=== PATIENT | male | born 1995 | race Caucasian/White ===

== ENCOUNTER 2016-12-21 17:00 | Emergency (ER) | END 2016-12-21 17:53 | disposition home or self-care (01) | DX: L03.115 Cellulitis of right lower limb (principal) | CPT/HCPCS: Z7502; Z7610 ==

== ENCOUNTER 2016-12-23 19:07 | Inpatient (IN) | payer OTHER ==
[~2016-12-23] VITALS: Ht 182.9 cm; Wt 92.0 kg
[~2016-12-23 19:07] MED LIST: CEPH-443 PO; IBUP-1542 PO; SULF1TAB31 PO
[2016-12-23] MEDS ORDERED: KETOROLAC 30 MG INJ IV STA (19:49)
[2016-12-23] MEDS ORDERED: VANCOMYCIN 1 GM (PMX) 250 ML IVPB SCH (20:00)
[2016-12-23] MEDS ORDERED: SOD CHLORIDE 0.9% 1,000 ML IV ONE (20:00)
[2016-12-23] MEDS ORDERED: ACETAMINOPHEN 325 MG TAB PO ONE (21:30)
[2016-12-23 21:41] LABS: ADD SCAN DIFF NO
--- NOTE | 2016-12-23 21:44 | RADRPT ---
PROCEDURE: XR right ankle. CLINICAL INDICATION: Right-sided ankle pain and medial swelling TECHNIQUE: AP , oblique and lateral views of the right ankle were performed. COMPARISON: None. FINDINGS: There is normal mineralization and alignment. No fracture or osseous lesion is identified. The ankle mortis and talar dome are intact. Mild soft tissue swelling is present. There is no evidence for a radiopaque foreign body. RPTAT:HJJR IMPRESSION: Mild soft tissue swelling without osseous abnormality involving the right ankle. Physician Yuri Date Time Electronically viewed and signed by Physician Yuri on 12/23/2016 21:44 /
--- NOTE | 2016-12-23 21:44 | RADRPT ---
PROCEDURE: XR right foot. CLINICAL INDICATION: Medial foot swelling TECHNIQUE: AP, lateral and oblique views of the right foot were obtained. COMPARISON: None. FINDINGS: Mineralization is within normal limits. No fracture or osseous lesion is identified. There is no e vidence for dislocation. Joint spaces are preserved. The soft tissues are unremarkable. There is n o evidence for radiopaque foreign body. RPTAT:HJJR IMPRESSION: Unremarkable right foot series. Physician Yuri Date Time Electronically viewed and signed by Physician Yuri on 12/23/2016 21:44 JR/
[2016-12-23 21:50] LABS: BASOPHILS % 0.3 % (0.0-2.0); EOSINOPHILS # 0.2 10^3/ul (0.0-0.5); EOSINOPHILS % 1.7 % (0.0-7.0); HEMATOCRIT 47.3 % (42.0-52.0); HEMOGLOBIN 15.8 g/dl (14.0-18.0); LYMPHOCYTES # 1.7 10^3/ul (0.8-2.9); LYMPHOCYTES % 13.7 % (15.0-51.0); MEAN CORPUSCULAR HEMOGLOBIN 30.7 pg (29.0-33.0); MEAN CORPUSCULAR HGB CONC 33.4 g/dl (32.0-37.0); MEAN CORPUSCULAR VOLUME 91.8 fl (82.0-101.0); MEAN PLATELET VOLUME 10.1 fl (7.4-10.4); MONOCYTE # 0.9 10^3/ul (0.3-0.9); MONOCYTES % 7.7 % (0.0-11.0); NEUTROPHIL # 9.3 10^3/ul (1.6-7.5); PLATELET COUNT 284 10^3/UL (140-415); RED BLOOD COUNT 5.15 10^6/ul (4.70-6.10); RED CELL DISTRIBUTION WIDTH 13.1 % (11.5-14.5); WHITE BLOOD COUNT 12.2 10^3/ul (4.8-10.8)
[2016-12-23] MEDS ORDERED: morphine 10 MG INJ IV ONE (22:00)
[2016-12-23 22:08] LABS: ALBUMIN 5.1 g/dl (3.3-4.9); ALBUMIN/GLOBULIN RATIO 1.59; BILIRUBIN,INDIRECT 0.4 mg/dl (0-1.1); BILIRUBIN,TOTAL 0.4 mg/dl (0.2-1.3); C-REACTIVE PROTEIN 5.4 mg/dl (0.0-0.9); CALCIUM 9.5 mg/dl (8.4-10.2); CREATININE 1.15 mg/dl (0.61-1.24); POTASSIUM 3.9 mmol/L (3.5-5.1); TOTAL PROTEIN 8.3 g/dl (6.1-8.1)
--- NOTE | 2016-12-23 23:08 | ERA ---
ER Documentation Chief Complaint Date/Time DATE: 12/23/16 TIME: 23:07 Chief Complaint bug bite on right ankle x 3 days, feels like it became worse HPI The patient is a 21-year-old male, presenting to the ER because of right ankle cellulitis from bug bite for 3 days. He was seen in the ER 2 days ago and treated with Bactrim DS and Keflex, however he is not getting better. The right ankle now is edematous, erythematous, and tender. He complains fever, denies chills, neck pain, chest pain, dyspnea, abdominal pain, vomiting, dysuria , diarrhea. He does not smoke nor drink Past medical/surgical history: None ROS All systems reviewed and are negative except as per history of present illness. Medications Home Meds Active Scripts Ibuprofen* (Motrin*) 600 Mg Tab, 600 MG PO Q6, #15 TAB Prov:ALIDA JALLOH MD 12/21/16 Cephalexin* (Keflex*) 500 Mg Capsule, 500 MG PO QID for 10 Days, CAP Prov:ALIDA JALLOH MD 12/21/16 Sulfamethoxazole/Trimethoprim* (Bactrim Ds* Tablet) 1 Each Tablet, 1 TAB PO BID , #14 TAB Prov:ALIDA JALLOH MD 12/21/16 Allergies Allergies: Coded Allergies: No Known Allergy (Unverified , 12/21/16) PMhx/Soc History of Surgery: No Anesthesia Reaction: No Hx Neurological Disorder: No Hx Respiratory Disorders: No Hx Cardiac Disorders: No Hx Psychiatric Problems: No Hx Miscellaneous Medical Probl: No Hx Alcohol Use: No Hx Substance Use: Yes Hx Tobacco Use: No Smoking Status: Never smoker Physical Exam Vitals Vital Signs Date Time Temp Pulse Resp B/P Pulse Ox O2 Delivery O2 Flow Rate FiO2 12/23/16 22:58 101.0 12/23/16 19:11 99.6 103 18 161/96 98 Physical Exam Const: No acute distress. Head: Atraumatic. Eyes: Normal Conjunctiva. ENT: Normal External Ears, Nose and Mouth. Neck: Full range of motion. No meningismus. Resp: Clear to auscultation bilaterally. Cardio: Regular rate and rhythm. Abd: Soft, non distended, normal bowel sounds, non tender. Skin: No petechiae or rashes. Back: No midline or flank tenderness. Ext: Right ankle is erythematous, warm to touch, edematous, no calf tenderness Neur: Awake and alert. No focal deficit Psych: Normal Mood and Affect. Result Diagram: 12/23/16203612/23/162036 Results 24 hrs Laboratory Tests Test 12/23/16 20:37 12/23/16 21:20 White Blood Count 12.210^3/ul Red Blood Count 5.1510^6/ul Hemoglobin 15.8g/dl Hematocrit 47.3% Mean Corpuscular Volume 91.8fl Mean Corpuscular Hemoglobin 30.7pg Mean Corpuscular Hemoglobin Concent 33.4g/dl Red Cell Distribution Width 13.1% Platelet Count 82385^3/UL Mean Platelet Volume 10.1fl Neutrophils % 76.0% Lymphocytes % 13.7% Monocytes % 7.7% Eosinophils % 1.7% Basophils % 0.3% Nucleated Red Blood Cells % 0.0/100WBC Neutrophils # 9.310^3/ul Lymphocytes # 1.710^3/ul Monocytes # 0.910^3/ul Eosinophils # 0.210^3/ul Basophils # 0.010^3/ul Nucleated Red Blood Cells # 0.010^3/ul Erythrocyte Sedimentation Rate 1mm/Hr Sodium Level 134mmol/L Potassium Level 3.9mmol/L Chloride Level 99mmol/L Carbon Dioxide Level 27mmol/L Anion Gap 12 Blood Urea Nitrogen 10mg/dl Creatinine 1.15mg/dl Glucose Level 79mg/dl Calcium Level 9.5mg/dl Total Bilirubin 0.4mg/dl Direct Bilirubin 0.00mg/dl Indirect Bilirubin 0.4mg/dl Aspartate Amino Transf (AST/SGOT) 242IU/L Alanine Aminotransferase (ALT/SGPT) 87IU/L Alkaline Phosphatase 77IU/L C-Reactive Protein 5.4mg/dl Total Protein 8.3g/dl Albumin 5.1g/dl Globulin 3.20g/dl Albumin/Globulin Ratio 1.59 Lactic Acid Level 1.8mmol/L Current Medications Medications (Trade) Dose Ordered Sig/Nany Route PRN Reason Start Time Stop Time Status Last Admin Dose Admin Sodium Chloride 1,000 ml @ 1,000 mls/hr Q1H ONCE IV 12/23/16 20:00 12/23/16 20:59 DC 12/23/16 21:01 Vancomycin HCl (Vancocin) 250 ml @ 125 mls/hr ONCE IVPB 12/23/16 20:00 12/23/16 21:59 DC 12/23/16 21:02 Ketorolac Tromethamine (Toradol) 30 mg ONCE STAT IV 12/23/16 19:49 12/23/16 19:53 DC 12/23/16 21:02 Acetaminophen (Tylenol Tab) 650 mg ONCE ONCE PO 12/23/16 21:30 12/23/16 21:31 DC 12/23/16 21:31 Morphine Sulfate 6 mg 6 mg ONCE ONCE IV 12/23/16 22:00 12/23/16 22:01 DC 12/23/16 22:06 Levofloxacin/ Dextrose (Levaquin 750 Mg/ D5W 150 ml (Pmx)) 150 ml @ 100 mls/hr ONCE ONCE IVPB 12/23/16 23:30 12/24/16 00:59 DC 12/23/16 23:30 IV Flush (NS 3 ml) 3 ml PER PROTOCOL IV 12/24/16 00:30 Ondansetron HCl (Zofran Inj) 4 mg Q6H PRN IV NAUSEA AND/OR VOMITING 12/24/16 00:30 Acetaminophen (Tylenol Tab) 650 mg Q6H PRN PO PAIN LEVEL 1-3 OR FEVER 12/24/16 00:30 Morphine Sulfate (morphine) 2 mg Q4H PRN IV SEVERE PAIN LEVEL 7-10 12/24/16 00:30 Pantoprazole (Protonix Iv) 40 mg DAILY@06 IV 12/24/16 06:00 Heparin Sodium (Porcine) (Heparin (5000 Units/0.5 ml)) 5,000 unit Q8 SC 12/24/16 06:00 Vancomycin HCl VANCOMYCIN PER PHARMACY PER PROTOCOL XX 12/24/16 00:30 Vancomycin HCl/ Sodium Chloride (Vancocin/NS) 250 ml @ 83.333 mls/ hr Q8H IVPB 12/24/16 05:00 Procedures/[place] [id number] Radiology Main Line: [phone] DIAGNOSTIC IMAGING REPORT Patient: SOFIA LENTZ : 1995 Age: 21 Sex: M MR #: [id number] DOS: 12/23/16 0000 Ordering MD: AVANI BRIHGT PA-C Location: [facility] Room/Bed: PROCEDURE: XR right foot. CLINICAL INDICATION: Medial foot swelling TECHNIQUE: AP, lateral and oblique views of the right foot were obtained. COMPARISON: None. FINDINGS: Mineralization is within normal limits. No fracture or osseous lesion is identified. There is no evidence for dislocation. Joint spaces are preserved. The soft tissues are unremarkable. There is no evidence for radiopaque foreign body. RPTAT:HJJR IMPRESSION: Unremarkable right foot series. Physician Yuri Date Time Electronically viewed and signed by Physician Yuri on 12/23/2016 21:44 JR/ CC: AVANI BRIGHT [place] [id number] Radiology Main Line: [phone] DIAGNOSTIC IMAGING REPORT Patient: SOFIA LENTZ : 1995 Age: 21 Sex: M MR #: [id number] DOS: 12/23/16 0000 Ordering MD: AVANI BRIGHT PA-C Location: [facility] Room/Bed: PROCEDURE: XR right ankle. CLINICAL INDICATION: Right-sided ankle pain and medial swelling TECHNIQUE: AP , oblique and lateral views of the right ankle were performed. COMPARISON: None. FINDINGS: There is normal mineralization and alignment. No fracture or osseous lesion is identified. The ankle mortis and talar dome are intact. Mild soft tissue swelling is present. There is no evidence for a radiopaque foreign body. RPTAT:HJJR IMPRESSION: Mild soft tissue swelling without osseous abnormality involving the right ankle. Physician Yuri Date Time Electronically viewed and signed by Physician Yuri on 12/23/2016 21:44 JR/ CC: AVANI BRIGHT MEDICAL MAKING DECISION: The patient is a 21-year-old male, presenting with acute right ankle cellulitis, refractory to outpatient therapy. He was treated with 1 L normal saline for clinical dehydration, vancomycin IV, Levaquin IV for acute right ankle cellulitis, Tylenol 650 mg p.o. for fever, toradol 30 mg IV and morphine 6 mg IV for pain with good response The differential diagnoses considered include but are not limited to cellulitis , abscess, necrotizing fasciitis, DVT, septic joint Departure Diagnosis: Primary Impression: Cellulitis of right ankle Additional Impression: Transaminitis Condition: Good Comments I discussed the findings with the patient. I discussed the patient with the hospitalist Dr. Hogan at 12:10 AM. who was made aware of the lab, the treatment, the patient condition. The patient is admitted to medical surgery bed Patient's blood pressure was elevated (>120/80) but appears stable without evidence of hypertension emergency or urgency. The patient was counseled about the risks of hypertension and urged to pursue outpatient monitoring and therapy within a week with their primary care physician. CARRIE SWAIN MD Dec 23, 2016 23:08
[2016-12-23] MEDS ORDERED: LEVOFLOXACIN 750MG/D5W (PMX) 150 ML IVPB ONE (23:30)
[2016-12-24] MEDS ORDERED: NACL 0.9% 3 ML SYG IV SCH (00:30)
[2016-12-24] MEDS ORDERED: VANCOMYCIN IV PER PHARMACY XX SCH (00:30)
[2016-12-24] MEDS ORDERED: ONDANSETRON 4 MG INJ IV PRN (00:30)
[2016-12-24] MEDS ORDERED: morphine 2 MG INJ IV PRN (00:30)
[2016-12-24] MEDS: ACETAMINOPHEN 325 MG TAB PO PRN ×2 (02:17→14:03)
[2016-12-24] MEDS: SOD CHLORIDE 0.9% 1,000 ML IV SCH ×4 (04:00→20:00)
--- NOTE | 2016-12-24 04:08 | HP ---
Date/Time of Note Date/Time of Note DATE: 12/24/16 TIME: 03:59 Assessment/Plan Assessment/Plan Chief Complaint/Hosp Course This is a 21-year-old male being admitted to the [facility] floor for: #1 right ankle cellulitis: Patient failed outpatient therapy. At the current time will start patient on vancomycin IV. Patient was given a dose of Vanco and Levaquin in the ED. Will follow blood cultures. X-rays showed soft tissue swelling. #2 transaminitis: This likely could be secondary to recent antibiotic use of Bactrim and Keflex as of both have side effects of transaminitis. Will order however right upper quadrant ultrasound and acute hepatitis panel for completeness sake as patient is observed to have multiple tattoos. #3 muscle tightness: Patient has some mild range of motion limitation as well as muscle tightness in bilateral upper extremities. This possibly could be general soreness from patient having worked out heavy after a long time however rule out embolus. Will order a CK total. Will put the patient on IV fluids of normal saline at 125 cc an hour and adjust as indicated. #3 DVT and GI prophylaxis: Heparin subcu, Protonix. Further treatment strategy will be implemented as per the clinical course Problems: HPI/ROS Admit Date/Time Admit Date/Time Hx of Present Illness Chief complaint: Right ankle swelling The patient is a 21-year-old male, presenting to the ER because of right ankle cellulitis from bug bite for 3 days. He was seen in the ER 2 days ago and treated with Bactrim DS and Keflex, however he is not getting better. The right ankle now is edematous, erythematous, and tender. He complains fever, denies chills, neck pain, chest pain, dyspnea, abdominal pain, vomiting, dysuria , diarrhea. H patient also reports that 2 days prior to getting the bug bite he also was working a lot and ever since then his upper remedies have been really stiff. The lower extremities are not stiff. Allergies: Include Medications: Bactrim, Keflex ROS Const: As per HPI Eyes : No pain discharge or redness or change in visual acuity ENT: No pain, sore throat, congestion, congestion, dysphagia or discharge Respiratory: No shortness of breath, cough, sputum, wheezing, or pleuritic pain Cardiovascular: No chest pain, palpitation, PND, or edema GI : no change in appetite, abdominal pain, nausea, vomiting, diarrhea, constipation, or change in the color his stool Genitourinary: No dysuria, hematuria, flank pain , discharge or CVA tenderness Musculoskeletal: As per HPI Skin: As per HPI Neuro: No headache, dizziness, syncope, seizure, focal weakness Endocrine: No polyuria, polydipsia, temperature intolerance Psych: No hallucination, depression, anxiety or suicidal ideation PMH/Family/Social Past Medical History Medical History: no pertinent history Past Surgical History Past Surgical Hx: no surgical history Family History Significant Family History: no pertinent family hx Social History Alcohol Use: none Smoking Status: Never smoker Drug Use: none Exam/Review of Systems Vital Signs Vitals Vital Signs Date Time Temp Pulse Resp B/P Pulse Ox O2 Delivery O2 Flow Rate FiO2 12/23/16 22:58 101.0 12/23/16 19:11 103 18 161/96 98 Exam Exam General: Patient is well-developed well-nourished The patient is alert oriented -3 lying comfortably in bed. HEENT: Atraumatic, normocephalic. The pupils are equal, round and reactive. Extraocular motor are intact Neck: Supple with full range of motion. No rigidity or meningismus Chest: Nontender Lungs: Clear to auscultation bilaterally no crackles rales or wheezing Heart: Normal S1-S2, Regular rhythm and rate. No murmur, S3, or S4 Abdomen: Soft , nontender, nondistended , bowel sounds are present. No guarding no rebound tenderness , No masses or organomegaly. No costovertebral temporal angle mass Extremities: Right medial ankle redness, swelling, warmth noted. Bilateral upper extremity mild range of motion limitation at the bilateral antecubital fossa. Neurologic: Normal mental status, speech normal, cranial nerves II through XII are intact, motor and sensory are intact, no focal weakness Skin: Multiple tattoos Additional Comments PROCEDURE: XR right ankle. CLINICAL INDICATION: Right-sided ankle pain and medial swelling TECHNIQUE: AP , oblique and lateral views of the right ankle were performed. COMPARISON: None. FINDINGS: There is normal mineralization and alignment. No fracture or osseous lesion is identified. The ankle mortis and talar dome are intact. Mild soft tissue swelling is present. There is no evidence for a radiopaque foreign body. RPTAT:HJJR IMPRESSION: Mild soft tissue swelling without osseous abnormality involving the right ankle. Physician Yuri Date Time Electronically viewed and signed by Physician Yuri on 12/23/2016 21:44 JR/ PROCEDURE: XR right foot. CLINICAL INDICATION: Medial foot swelling TECHNIQUE: AP, lateral and oblique views of the right foot were obtained. COMPARISON: None. FINDINGS: Mineralization is within normal limits. No fracture or osseous lesion is identified. There is no evidence for dislocation. Joint spaces are preserved. The soft tissues are unremarkable. There is no evidence for radiopaque foreign body. RPTAT:HJJR IMPRESSION: Unremarkable right foot series. Physician Yuri Date Time Electronically viewed and signed by Physician Yuri on 12/23/2016 21:44 JR/ CC: AVANI BRIGHT Labs Result Diagram: 12/23/16203612/23/162036 Medications Medications Current Medications Ondansetron HCl (Zofran Inj) 4 mg Q6H PRN IV NAUSEA AND/OR VOMITING; Start at 00:30 Acetaminophen (Tylenol Tab) 650 mg Q6H PRN PO PAIN LEVEL 1-3 OR FEVER Last administered on 12/24/16t 02:17; Admin Dose 650 MG; Start 12/24/16 at 00:30 Morphine Sulfate (morphine) 2 mg Q4H PRN IV SEVERE PAIN LEVEL 7-10; Start 12/24 at 00:30 Pantoprazole (Protonix Iv) 40 mg DAILY@06 IV ; Start 12/24/16 at 06:00 Heparin Sodium (Porcine) 5000 unit 5,000 unit Q8 SC ; Start 12/24/16 at 06:00 Vancomycin HCl/ Sodium Chloride (Vancocin/NS) 250 ml @ 83.333 mls/ hr Q8H IVPB ; Start 12/24/16 at 05:00 MIGUEL MCLEAN Dec 24, 2016 04:08
[2016-12-24 04:21] VITALS: TEMP 100
[2016-12-24] MEDS ORDERED: VANCOMYCIN 1.25 GM in SOD CHLORIDE 0.9% 250 ML IVPB SCH (05:00)
[2016-12-24 05:36] LABS: HAAIG REFLEX REFLEX FILED
[2016-12-24 05:42] VITALS: BP 140/84; PULSE 99; RESP 17
[2016-12-24 05:47] VITALS: Ht 182.9 cm; Wt 92.0 kg
[2016-12-24] MEDS ORDERED: PANTOPRAZOLE 40 MG INJ IV SCH (06:00)
[2016-12-24] MEDS: morphine 2 MG INJ IV PRN (06:07)
[2016-12-24] MEDS: HEPARIN 5,000 UNIT/0.5 ML VIAL SC SCH ×3 (06:10→22:30)
[2016-12-24 06:55] LABS: HEPATITIS B CORE ANTIBODY NEGATIVE (NEGATIVE)
[2016-12-24 07:00] VITALS: BP 134/81; RESP 18
--- NOTE | 2016-12-24 08:27 | RADRPT ---
PROCEDURE: US Abdomen (right upper quadrant). CLINICAL INDICATION: Elevated liver enzymes. TECHNIQUE: Multiple real-time longitudinal and transverse images of the right upper quadrant of th e abdomen were acquired utilizing a curved array transducer. Images were reviewed on a high-resoluti on PACS workstation. COMPARISON: None FINDINGS: The liver is normal in size and normal in echogenicity. There is no focal hepatic lesion. Color Doppler and pulsed Doppler sonography demonstrate normal a ntegrade flow in the portal vein. The gallbladder is normal with no stones or wall thickening. There is no pericholecystic fluid natanael ection. The bile ducts are normal with the common bile duct measuring 5.3 mm in diameter. The pancreas is partially seen and appears unremarkable. No free fluid is present. The right kidney measures 11.4 cm. There is normal echogenicity of the right kidney. There is no perinephric fluid collection. No hydronephrosis, mass, or calculus is seen. IMPRESSION: 1. Unremarkable right upper quadrant abdomen ultrasound. RPTAT: QQ .Javier Trinh MD, Date Time Electronically viewed and signed by .Javier Trinh MD, on 12/24/2016 08:27 .R/
--- NOTE | 2016-12-24 15:25 | PN ---
Date/Time of Note Date/Time of Note DATE: 12/24/16 TIME: 15:15 Assessment/Plan VTE Prophylaxis VTE Prophylaxis Intervention: heparin Lines/Catheters IV Catheter Type (from Nrs): Peripheral IV Assessment/Plan Chief Complaint/Hosp Course #1 right ankle cellulitis: Patient failed outpatient therapy -Vancomycin IV -Follow up blood cultures, X-rays showed soft tissue swelling. #2 Transaminitis Abd US and Hep panel negative #3 Rhabdo with muscle tightness likely 2/2 heavy weight lifting -IVF -Baclofen PRN DVT and GI prophylaxis: Heparin subcu, Protonix. Problems: Subjective 24 Hr Interval Summary Musculoskeletal: bone/joint pain Exam/Review of Systems Vital Signs Vitals Vital Signs Date Time Temp Pulse Resp B/P Pulse Ox O2 Delivery O2 Flow Rate FiO2 12/24/16 07:00 99.4 84 18 134/81 96 12/24/16 05:42 Room Air Intake and Output 12/23/16 12/23/16 12/24/16 15:00 23:00 07:00 Intake Total 1250 ml Balance 1250 ml Exam Constitutional: alert, oriented Respiratory: clear to auscultation Cardiovascular: regular rate and rhythm Gastrointestinal: soft, No distended Musculoskeletal: No nl extremities to inspection Results Result Diagram: 12/23/16203612/23/162036 Results 24 hrs Laboratory Tests Test 12/23/16 20:37 12/23/16 21:20 12/24/16 05:08 White Blood Count 12.2 H Red Blood Count 5.15 Hemoglobin 15.8 Hematocrit 47.3 Mean Corpuscular Volume 91.8 Mean Corpuscular Hemoglobin 30.7 Mean Corpuscular Hemoglobin Concent 33.4 Red Cell Distribution Width 13.1 Platelet Count 284 Mean Platelet Volume 10.1 Neutrophils % 76.0 Lymphocytes % 13.7 L Monocytes % 7.7 Eosinophils % 1.7 Basophils % 0.3 Nucleated Red Blood Cells % 0.0 Neutrophils # 9.3 H Lymphocytes # 1.7 Monocytes # 0.9 Eosinophils # 0.2 Basophils # 0.0 Nucleated Red Blood Cells # 0.0 Erythrocyte Sedimentation Rate 1 Sodium Level 134 L Potassium Level 3.9 Chloride Level 99 Carbon Dioxide Level 27 Anion Gap 12 Blood Urea Nitrogen 10 Creatinine 1.15 Glucose Level 79 Calcium Level 9.5 Total Bilirubin 0.4 Direct Bilirubin 0.00 Indirect Bilirubin 0.4 Aspartate Amino Transf (AST/SGOT) 242 H Alanine Aminotransferase (ALT/SGPT) 87 H Alkaline Phosphatase 77 C-Reactive Protein 5.4 H Total Protein 8.3 H Albumin 5.1 H Globulin 3.20 Albumin/Globulin Ratio 1.59 Lactic Acid Level 1.8 Creatine Kinase 76084 H Hepatitis B Surface Antigen NEGATIVE Hepatitis B Core Total Antibody NEGATIVE Hepatitis C Antibody NEGATIVE Medications Medications Current Medications Ondansetron HCl (Zofran Inj) 4 mg Q6H PRN IV NAUSEA AND/OR VOMITING; Start at 00:30 Acetaminophen (Tylenol Tab) 650 mg Q6H PRN PO PAIN LEVEL 1-3 OR FEVER Last administered on 12/24/16 14:03; Admin Dose 650 MG; Start 12/24/16 at 00:30 Pantoprazole (Protonix Iv) 40 mg DAILY@06 IV Last administered on 12/24/16 06: 07; Admin Dose 40 MG; Start 12/24/16 at 06:00 Heparin Sodium (Porcine) 5000 unit 5,000 unit Q8 SC Last administered on 14:53; Admin Dose 5,000 UNIT; Start 12/24/16 at 06:00 Sodium Chloride (NS) 1,000 ml @ 125 mls/hr Q8H IV Last administered on 06:12; Admin Dose 125 MLS/HR; Start 12/24/16 at 04:00 Morphine Sulfate 2 mg 2 mg Q4H PRN IV PAIN Last administered on 12/24/16 06:07 ; Admin Dose 2 MG; Start 12/24/16 at 04:30 Vancomycin HCl/ Sodium Chloride (Vancocin/NS) 250 ml @ 83.333 mls/ hr Q8H IVPB ; Start 12/24/16 at 18:00 Miscellaneous Information (*Rx Drug Level Order Reminder*) 1 ONCE ONCE XX ; Start 12/25/16 at 09:00; Stop 12/25/16 at 09:01 LEANDRA DANG Dec 24, 2016 15:25
[2016-12-24] MEDS ORDERED: BACLOFEN 10 MG TAB PO ONE (17:00)
[2016-12-24] MEDS: VANCOMYCIN 1.25 GM in SOD CHLORIDE 0.9% 250 ML IVPB SCH (17:49)
[2016-12-24 19:59] LABS: ADD UMIC NO; UR ASCORBIC ACID NEGATIVE (NEGATIVE); UR BILIRUBIN (Dip) NEGATIVE (NEGATIVE); UR BLOOD (Dip) NEGATIVE (NEGATIVE); UR CLARITY CLEAR (CLEAR); UR COLOR STRAW (YELLOW); UR GLUCOSE (Dip) NEGATIVE (NEGATIVE); UR KETONES (Dip) NEGATIVE (NEGATIVE); UR LEUKOCYTE ESTERASE (Dip) NEGATIVE Leu/ul (NEGATIVE); UR NITRITE (Dip) NEGATIVE (NEGATIVE); UR SPECIFIC GRAVITY (Dip) 1.004 (1.003-1.030); UR TOTAL PROTEIN (Dip) NEGATIVE (NEGATIVE); UR UROBILINOGEN (Dip) NEGATIVE (NEGATIVE)
[2016-12-24 20:16] VITALS: BP 136/92; RESP 19
[2016-12-25] MEDS: VANCOMYCIN 1.25 GM in SOD CHLORIDE 0.9% 250 ML IVPB SCH ×3 (02:53→17:42)
[2016-12-25] MEDS: SOD CHLORIDE 0.9% 1,000 ML IV SCH ×3 (04:00→20:00)
[2016-12-25] MEDS: PANTOPRAZOLE (EC) 40 MG TAB PO SCH (06:13)
[2016-12-25] MEDS: HEPARIN 5,000 UNIT/0.5 ML VIAL SC SCH ×3 (06:19→21:31)
[2016-12-25 08:04] VITALS: BP 131/74; RESP 18
[2016-12-25] MEDS: BACLOFEN 10 MG TAB PO PRN ×2 (10:11→17:42)
[2016-12-25 10:16] LABS: ADD SCAN DIFF NO
[2016-12-25 10:17] LABS: BASOPHILS % 0.5 % (0.0-2.0); EOSINOPHILS # 0.3 10^3/ul (0.0-0.5); EOSINOPHILS % 3.2 % (0.0-7.0); HEMATOCRIT 47.1 % (42.0-52.0); HEMOGLOBIN 16.1 g/dl (14.0-18.0); LYMPHOCYTES % 24.5 % (15.0-51.0); MEAN CORPUSCULAR HGB CONC 34.2 g/dl (32.0-37.0); MEAN CORPUSCULAR VOLUME 90.6 fl (82.0-101.0); MEAN PLATELET VOLUME 9.2 fl (7.4-10.4); MONOCYTE # 0.9 10^3/ul (0.3-0.9); MONOCYTES % 10.6 % (0.0-11.0); NEUTROPHIL # 4.9 10^3/ul (1.6-7.5); NEUTROPHILS % 60.8 % (39.0-77.0); PLATELET COUNT 290 10^3/UL (140-415); RED CELL DISTRIBUTION WIDTH 12.8 % (11.5-14.5)
[2016-12-25 10:36] LABS: ALBUMIN 4.9 g/dl (3.3-4.9); ALBUMIN/GLOBULIN RATIO 1.53; BILIRUBIN,INDIRECT 0.5 mg/dl (0-1.1); BILIRUBIN,TOTAL 0.5 mg/dl (0.2-1.3); CALCIUM 9.9 mg/dl (8.4-10.2); CREATININE 0.92 mg/dl (0.61-1.24); PHOSPHORUS 3.8 mg/dl (2.5-4.9); POTASSIUM 4.3 mmol/L (3.5-5.1); TOTAL PROTEIN 8.1 g/dl (6.1-8.1)
--- NOTE | 2016-12-25 10:56 | PN ---
Date/Time of Note Date/Time of Note DATE: 12/25/16 TIME: 10:52 Assessment/Plan VTE Prophylaxis VTE Prophylaxis Intervention: heparin Lines/Catheters IV C[facility] Type (from [facility]): Peripheral IV Assessment/Plan Problems: (1) Rhabdomyolysis Status: Acute Comment: Patient reports this is after extreme weight lifting on the ninth. He absolutely denies any use of anabolic steroids or other types of physical trauma. Follow-up CPK is pending. It is possible he may have an occult underlying myopathy however I doubt that under the present circumstances. Qualifiers: Rhabdomyolysis type: traumatic Encounter type: initial encounter Qualified Code: T79.6XXA - Traumatic rhabdomyolysis, initial encounter (2) Cellulitis of right ankle Status: Acute Comment: Improving with IV antibiotic therapy continue same cultures pending (3) Transaminitis Status: Acute Comment: Negative hepatitis serologies negative liver ultrasound. This could be from his rhabdomyolysis or alternatively he could be from the use of anabolic steroids that he is simply not sharing with us Subjective 24 Hr Interval Summary Free Text/Dictation Patient reports he is feeling better. That his leg is decreasing in size he has less pain in the leg and there is less warmth. In addition he reports his muscles are feeling better he has better range of motion although is not back to baseline Constitutional: no complaints (No fevers chills or sweats) Respiratory: no complaints Cardiovascular: no complaints Gastrointestinal: no complaints Genitourinary: no complaints Musculoskeletal: other (Still with diffuse muscle pain) Exam/Review of Systems Vital Signs Vitals Vital Signs Date Time Temp Pulse Resp B/P Pulse Ox O2 Delivery O2 Flow Rate FiO2 12/25/16 08:04 98.0 70 18 131/74 100 12/24/16 05:42 Room Air Intake and Output 12/24/16 12/24/16 12/25/16 15:00 23:00 07:00 Intake Total 250 ml 2550 ml 1450 ml Output Total 500 ml Balance 250 ml 2550 ml 950 ml Exam Constitutional: alert, oriented Neck: non-tender, supple Respiratory: clear to auscultation, normal air movement Extremities: other (Right lower extremity with erythema but it is decreasing compared to the ink patten) Results Result Diagram: 12/25/16 0930 12/25/16 0930 Results 24 hrs Laboratory Tests Test 12/24/16 17:15 12/25/16 09:30 Urine Color STRAW Urine Clarity CLEAR Urine pH 7.0 Urine Specific [place] 1.004 Urine Ketones NEGATIVE Urine Nitrite NEGATIVE Urine Bilirubin NEGATIVE Urine Urobilinogen NEGATIVE Urine Leukocyte Esterase NEGATIVE Urine Hemoglobin NEGATIVE Urine Glucose NEGATIVE Urine Total Protein NEGATIVE White Blood Count 8.0 # Red Blood Count 5.20 Hemoglobin 16.1 Hematocrit 47.1 Mean Corpuscular Volume 90.6 Mean Corpuscular Hemoglobin 31.0 Mean Corpuscular Hemoglobin Concent 34.2 Red Cell Distribution Width 12.8 Platelet Count 290 Mean Platelet Volume 9.2 Neutrophils % 60.8 Lymphocytes % 24.5 Monocytes % 10.6 Eosinophils % 3.2 Basophils % 0.5 Nucleated Red Blood Cells % 0.0 Neutrophils # 4.9 Lymphocytes # 2.0 Monocytes # 0.9 Eosinophils # 0.3 Basophils # 0.0 Nucleated Red Blood Cells # 0.0 Sodium Level 142 Potassium Level 4.3 Chloride Level 98 Carbon Dioxide Level 30 Anion Gap 18 H Blood Urea Nitrogen 8 Creatinine 0.92 Glucose Level 107 Hemoglobin A1c 5.3 Lactic Acid Level 1.6 Calcium Level 9.9 Phosphorus Level 3.8 Magnesium Level 2.0 Total Bilirubin 0.5 Direct Bilirubin 0.00 Indirect Bilirubin 0.5 Aspartate Amino Transf (AST/SGOT) 273 H Alanine Aminotransferase (ALT/SGPT) 107 H Alkaline Phosphatase 56 Creatine Kinase Pending Total Protein 8.1 Albumin 4.9 Globulin 3.20 Albumin/Globulin Ratio 1.53 Vancomycin Level Trough 11.6 Medications Medications Current Medications Ondansetron HCl (Zofran Inj) 4 mg Q6H PRN IV NAUSEA AND/OR VOMITING; Start at 00:30 Acetaminophen (Tylenol Tab) 650 mg Q6H PRN PO PAIN LEVEL 1-3 OR FEVER Last administered on 12/24/16 14:03; Admin Dose 650 MG; Start 12/24/16 at 00:30 Heparin Sodium (Porcine) 5000 unit 5,000 unit Q8 SC Last administered on 06:19; Admin Dose 5,000 UNIT; Start 12/24/16 at 06:00 Sodium Chloride (NS) 1,000 ml @ 125 mls/hr Q8H IV Last administered on 06:12; Admin Dose 125 MLS/HR; Start 12/24/16 at 04:00 Morphine Sulfate 2 mg 2 mg Q4H PRN IV PAIN Last administered on 12/24/16 06:07 ; Admin Dose 2 MG; Start 12/24/16 at 04:30 Vancomycin HCl/ Sodium Chloride (Vancocin/NS) 250 ml @ 83.333 mls/ hr Q8H IVPB Last administered on 12/25/16 10:09; Admin Dose 83.333 MLS/HR; Start at 18:00 Pantoprazole (Protonix Tab) 40 mg DAILY@06 PO Last administered on 12/25/16 06 :13; Admin Dose 40 MG; Start 12/25/16 at 06:00 Baclofen (Lioresal) 10 mg Q8H PRN PO MUSCLE SPASMS Last administered on 10:11; Admin Dose 10 MG; Start 12/24/16 at 17:00 KIKA WHEELER MD Dec 25, 2016 10:55
[2016-12-25 14:00] VITALS: BP 134/70; PULSE 78; RESP 17
[2016-12-25 19:00] VITALS: BP_SYST 18; RESP 18
[2016-12-25] MEDS: morphine 2 MG INJ IV PRN (19:47)
[2016-12-26] MEDS: VANCOMYCIN 1.25 GM in SOD CHLORIDE 0.9% 250 ML IVPB SCH ×3 (02:07→18:17)
[2016-12-26] MEDS: SOD CHLORIDE 0.9% 1,000 ML IV SCH ×3 (04:00→20:00)
[2016-12-26] MEDS: PANTOPRAZOLE (EC) 40 MG TAB PO SCH (05:53)
[2016-12-26 05:57] LABS: ADD SCAN DIFF NO
[2016-12-26] MEDS: HEPARIN 5,000 UNIT/0.5 ML VIAL SC SCH ×3 (06:01→20:19)
[2016-12-26 06:02] LABS: BASOPHILS % 0.4 % (0.0-2.0); EOSINOPHILS # 0.3 10^3/ul (0.0-0.5); EOSINOPHILS % 3.1 % (0.0-7.0); HEMATOCRIT 47.1 % (42.0-52.0); HEMOGLOBIN 15.7 g/dl (14.0-18.0); LYMPHOCYTES # 2.5 10^3/ul (0.8-2.9); LYMPHOCYTES % 24.7 % (15.0-51.0); MEAN CORPUSCULAR HEMOGLOBIN 30.1 pg (29.0-33.0); MEAN CORPUSCULAR HGB CONC 33.3 g/dl (32.0-37.0); MEAN CORPUSCULAR VOLUME 90.2 fl (82.0-101.0); MEAN PLATELET VOLUME 9.6 fl (7.4-10.4); MONOCYTES % 9.9 % (0.0-11.0); NEUTROPHIL # 6.2 10^3/ul (1.6-7.5); NEUTROPHILS % 61.2 % (39.0-77.0); PLATELET COUNT 306 10^3/UL (140-415); RED BLOOD COUNT 5.22 10^6/ul (4.70-6.10); RED CELL DISTRIBUTION WIDTH 12.9 % (11.5-14.5); WHITE BLOOD COUNT 10.2 10^3/ul (4.8-10.8)
[2016-12-26 06:23] LABS: CALCIUM 9.3 mg/dl (8.4-10.2); CREATININE 0.99 mg/dl (0.61-1.24); POTASSIUM 4.4 mmol/L (3.5-5.1)
[2016-12-26 06:47] LABS: TROPONIN-I < 0.012 ng/ml (0.00-0.12)
[2016-12-26 06:48] LABS: CK-MB 2.65 ng/ml (0.0-2.4)
[2016-12-26 07:46] VITALS: BP 124/75; RESP 18
[2016-12-26 07:55] LABS: CREATINE KINASE 10527 IU/L (23-200)
--- NOTE | 2016-12-26 13:03 | PN ---
Date/Time of Note Date/Time of Note DATE: 12/26/16 TIME: 13:01 Assessment/Plan VTE Prophylaxis VTE Prophylaxis Intervention: heparin Lines/Catheters IV Catheter Type (from [facility]): Peripheral IV Assessment/Plan Problems: (1) Cellulitis Status: Acute Comment: Improving with IV antibiotics after failure with oral antibiotic therapy. Continue treatment. Please note it discharge will be somewhat careful with the antibiotics as his CPK elevations may have been contributed to by his outpatient antibiotic therapy Qualifiers: Site of cellulitis: extremity Site of cellulitis of extremity: lower extremity Laterality: right Qualified Code: L03.115 - Cellulitis of right lower extremity (2) Transaminitis Status: Acute Comment: Improved significantly. Quite likely a portion of this was due to the rhabdomyolysis (3) Rhabdomyolysis Status: Acute Comment: This is improving slowly but steadily. Continue treatment and hydration. Qualifiers: Rhabdomyolysis type: traumatic Encounter type: initial encounter Qualified Code: T79.6XXA - Traumatic rhabdomyolysis, initial encounter Subjective 24 Hr Interval Summary Free Text/Dictation Continues to improve. Still some pain in the ankle Constitutional: no complaints Respiratory: no complaints Cardiovascular: no complaints Gastrointestinal: no complaints Musculoskeletal: other (Right medial ankle pain) Exam/Review of Systems Vital Signs Vitals Vital Signs Date Time Temp Pulse Resp B/P Pulse Ox O2 Delivery O2 Flow Rate FiO2 12/26/16 07:46 98.2 74 18 124/75 97 12/24/16 05:42 Room Air Intake and Output 12/25/16 12/25/16 12/26/16 15:00 23:00 07:00 Intake Total 250 ml 3500 ml 250 ml Output Total 2850 ml Balance 250 ml 650 ml 250 ml Exam Constitutional: alert, oriented Respiratory: clear to auscultation, normal air movement Cardiovascular: nl pulses, regular rate and rhythm Extremities: other (Erythema significantly reduced localized to the right medial ankle) Results Result Diagram: 12/26/16 0448 12/26/16 0448 Results 24 hrs Laboratory Tests Test 12/26/16 04:48 12/26/16 04:50 White Blood Count 10.2 # Red Blood Count 5.22 Hemoglobin 15.7 Hematocrit 47.1 Mean Corpuscular Volume 90.2 Mean Corpuscular Hemoglobin 30.1 Mean Corpuscular Hemoglobin Concent 33.3 Red Cell Distribution Width 12.9 Platelet Count 306 Mean Platelet Volume 9.6 Neutrophils % 61.2 Lymphocytes % 24.7 Monocytes % 9.9 Eosinophils % 3.1 Basophils % 0.4 Nucleated Red Blood Cells % 0.0 Neutrophils # 6.2 Lymphocytes # 2.5 Monocytes # 1.0 H Eosinophils # 0.3 Basophils # 0.0 Nucleated Red Blood Cells # 0.0 Sodium Level 142 Potassium Level 4.4 Chloride Level 98 Carbon Dioxide Level 30 Anion Gap 18 H Blood Urea Nitrogen 12 Creatinine 0.99 Glucose Level 95 Calcium Level 9.3 Erythrocyte Sedimentation Rate 13 Creatine Kinase 68003 H Creatine Kinase Index 0.0 Creatinine Kinase MB (Mass) 2.65 H Troponin I < 0.012 Medications Medications Current Medications Ondansetron HCl (Zofran Inj) 4 mg Q6H PRN IV NAUSEA AND/OR VOMITING; Start at 00:30 Acetaminophen (Tylenol Tab) 650 mg Q6H PRN PO PAIN LEVEL 1-3 OR FEVER Last administered on 12/24/16 14:03; Admin Dose 650 MG; Start 12/24/16 at 00:30 Heparin Sodium (Porcine) 5000 unit 5,000 unit Q8 SC Last administered on 06:01; Admin Dose 5,000 UNIT; Start 12/24/16 at 06:00 Sodium Chloride (NS) 1,000 ml @ 125 mls/hr Q8H IV Last administered on 06:12; Admin Dose 125 MLS/HR; Start 12/24/16 at 04:00 Morphine Sulfate 2 mg 2 mg Q4H PRN IV PAIN Last administered on 12/25/16 19:47 ; Admin Dose 2 MG; Start 12/24/16 at 04:30 Vancomycin HCl/ Sodium Chloride (Vancocin/NS) 250 ml @ 83.333 mls/ hr Q8H IVPB Last administered on 12/26/16 09:48; Admin Dose 83.333 MLS/HR; Start at 18:00 Pantoprazole (Protonix Tab) 40 mg DAILY@06 PO Last administered on 12/26/16 05 :53; Admin Dose 40 MG; Start 12/25/16 at 06:00 Baclofen (Lioresal) 10 mg Q8H PRN PO MUSCLE SPASMS Last administered on 17:42; Admin Dose 10 MG; Start 12/24/16 at 17:00 KIKA WHEELER MD Dec 26, 2016 13:03
[2016-12-26] MEDS: morphine 2 MG INJ IV PRN (15:04)
[2016-12-26] MEDS: BACLOFEN 10 MG TAB PO PRN (18:16)
[2016-12-26 20:00] VITALS: BP 121/66; RESP 16
[2016-12-26] MEDS: HYDROCODONE/APAP (5/325) TAB PO PRN (20:17)
[2016-12-26] MEDS ORDERED: HYDROCODONE/APAP (5/325) TAB PO PRN (20:30)
[2016-12-26] MEDS: DIPHENHYDRAMINE 25 MG CAP PO PRN (23:55)
[2016-12-27] MEDS: VANCOMYCIN 1.25 GM in SOD CHLORIDE 0.9% 250 ML IVPB SCH ×3 (01:50→19:25)
[2016-12-27] MEDS: morphine 2 MG INJ IV PRN ×2 (01:51→21:42)
[2016-12-27] MEDS: SOD CHLORIDE 0.9% 1,000 ML IV SCH ×3 (03:21→20:00)
[2016-12-27] MEDS: PANTOPRAZOLE (EC) 40 MG TAB PO SCH (05:37)
[2016-12-27] MEDS: HEPARIN 5,000 UNIT/0.5 ML VIAL SC SCH ×3 (05:40→21:40)
[2016-12-27] MEDS: HYDROCODONE/APAP (5/325) TAB PO PRN ×2 (05:41→19:31)
[2016-12-27 08:07] VITALS: BP 122/76; RESP 16
--- NOTE | 2016-12-27 09:56 | PN ---
Date/Time of Note Date/Time of Note DATE: 12/27/16 TIME: 09:52 Assessment/Plan VTE Prophylaxis VTE Prophylaxis Intervention: heparin Lines/Catheters IV Catheter Type (from [facility]): Peripheral IV Assessment/Plan Chief Complaint/Hosp Course 1. Right ankle cellulitis, acute-failed outpatient therapy. Improving. -Continue IV antibiotics. 2. Transaminase elevation, likely chronic secondary to rhabdomyolysis. Stable liver ultrasound. -We will monitor. 3. Rhabdomyolysis. - Continue treatment and hydration. Plan: Continue IV antibiotics. Estimate discharge soon on oral antibiotics. Case discussed with Dr. Delgadillo. Problems: Subjective 24 Hr Interval Summary Free Text/Dictation Patient lying in bed comfortably. Denies chest pain, chills. Having minimal pain on right ankle area with significant improvement in swelling. Exam/Review of Systems Vital Signs Vitals Vital Signs Date Time Temp Pulse Resp B/P Pulse Ox O2 Delivery O2 Flow Rate FiO2 12/27/16 08:07 97.9 65 16 122/76 98 12/24/16 05:42 Room Air Intake and Output 12/26/16 12/26/16 12/27/16 15:00 23:00 07:00 Intake Total 1900 ml 1850 ml Output Total 1700 ml Balance 1900 ml 150 ml Exam General: Well developed,adequately built, not in any acute distress . HEENT: Normocephalic, Atraumatic, No laceration or hematoma; Eyes: PEERL, Conjunctiva clear, Anicteric sclera Neck: Supple without any lymphadenopathy, nontender, no JVD, no carotid bruits, trachea midline, no thyromegaly Cardiac: S1, S2 auscultated, regular rhythm and rate, no mumurs or gallop Pulmonary: Normal respiratory effort. Chest clear to auscultation bilaterally, no adventitious breath sounds GI: Abdomen normal to inspection. Soft, non tender, non- distended, no masses, no rebound tenderness or guarding. Bowel sounds active on all four quadrants Genitourinary: Deferred Extremities: Right ankle with minimal swelling/nonpitting. Otherwise no cyanosis, clubbing, or edema. Pulses [2+] bilaterally. Full ROM on all four extremities. No focal weakness appreciated. Neurologic: Alert to person, place, time, and situation. Affect appropriate, intact sensation. Skin: Clean,dry, and intact. No ecchymosis, no rashes, or lesions Results Result Diagram: 12/26/16 0448 12/26/16 0448 Medications Medications Current Medications Ondansetron HCl (Zofran Inj) 4 mg Q6H PRN IV NAUSEA AND/OR VOMITING; Start at 00:30 Acetaminophen (Tylenol Tab) 650 mg Q6H PRN PO PAIN LEVEL 1-3 OR FEVER Last administered on 12/24/16 14:03; Admin Dose 650 MG; Start 12/24/16 at 00:30 Heparin Sodium (Porcine) 5000 unit 5,000 unit Q8 SC Last administered on 05:40; Admin Dose 5,000 UNIT; Start 12/24/16 at 06:00 Sodium Chloride (NS) 1,000 ml @ 125 mls/hr Q8H IV Last administered on 06:12; Admin Dose 125 MLS/HR; Start 12/24/16 at 04:00 Morphine Sulfate 2 mg 2 mg Q4H PRN IV PAIN Last administered on 12/27/16 01:51 ; Admin Dose 2 MG; Start 12/24/16 at 04:30 Vancomycin HCl/ Sodium Chloride (Vancocin/NS) 250 ml @ 83.333 mls/ hr Q8H IVPB Last administered on 12/27/16 01:50; Admin Dose 83.333 MLS/HR; Start at 18:00 Pantoprazole (Protonix Tab) 40 mg DAILY@06 PO Last administered on 12/27/16 05 :37; Admin Dose 40 MG; Start 12/25/16 at 06:00 Baclofen (Lioresal) 10 mg Q8H PRN PO MUSCLE SPASMS Last administered on 18:16; Admin Dose 10 MG; Start 12/24/16 at 17:00 Acetaminophen/ Hydrocodone Bitart ([place] (5/325)) 1 tab Q6H PRN PO PAIN LEVEL 4 -6; Start 12/26/16 at 20:30 Acetaminophen/ Hydrocodone Bitart ([place] (5/325)) 2 tab Q6H PRN PO PAIN LEVEL 7 -10 Last administered on 12/27/16 05:41; Admin Dose 2 TAB; Start 12/26/16 at 20 :30 Diphenhydramine HCl (Benadryl) 25 mg Q6H PRN PO ITCHING Last administered on t 23:55; Admin Dose 25 MG; Start 12/27/16 at 00:00 PHILLY CLAYTON NP Dec 27, 2016 09:56
[2016-12-27 20:04] VITALS: BP 159/85; RESP 18
[2016-12-28] MEDS: HYDROCODONE/APAP (5/325) TAB PO PRN ×3 (01:42→19:30)
[2016-12-28] MEDS: VANCOMYCIN 1.25 GM in SOD CHLORIDE 0.9% 250 ML IVPB SCH (01:45)
[2016-12-28] MEDS: SOD CHLORIDE 0.9% 1,000 ML IV SCH ×3 (04:00→20:00)
[2016-12-28 05:15] LABS: ALBUMIN 3.6 g/dl (3.3-4.9); BILIRUBIN,INDIRECT 0.2 mg/dl (0-1.1); BILIRUBIN,TOTAL 0.2 mg/dl (0.2-1.3); CREATININE 0.95 mg/dl (0.61-1.24); TOTAL PROTEIN 6.6 g/dl (6.1-8.1)
[2016-12-28 05:22] LABS: CK-MB 1.46 ng/ml (0.0-2.4)
[2016-12-28] MEDS: PANTOPRAZOLE (EC) 40 MG TAB PO SCH (05:37)
[2016-12-28] MEDS: HEPARIN 5,000 UNIT/0.5 ML VIAL SC SCH ×3 (05:39→22:16)
[2016-12-28 08:00] VITALS: BP 152/85; RESP 18
[2016-12-28] MEDS: VANCOMYCIN 1 GM in NS 250 ML IVPB SCH ×2 (10:04→18:17)
--- NOTE | 2016-12-28 11:03 | PN ---
Date/Time of Note Date/Time of Note DATE: 12/28/16 TIME: 11:00 Assessment/Plan VTE Prophylaxis VTE Prophylaxis Intervention: SCD's Lines/Catheters IV Catheter Type (from [facility]): Saline Lock Assessment/Plan Chief Complaint/Hosp Course 1. Right ankle cellulitis, acute-failed outpatient therapy. Improving significantly. -Continue IV antibiotics. -Reorder blood cultures stat. 2. Transaminase elevation, likely chronic secondary to rhabdomyolysis. Improved. Stable liver ultrasound. -We will monitor. 3. Rhabdomyolysis. Improved. - Continue treatment and hydration. Plan: Continue IV antibiotics. Await for culture results. Estimate discharge 1 -2 days on oral antibiotics. Case discussed with Dr. Delgadillo. Problems: Subjective 24 Hr Interval Summary Free Text/Dictation Today patient with improvement in pain and significant swelling on his right ankle. Has been afebrile. Exam/Review of Systems Vital Signs Vitals Vital Signs Date Time Temp Pulse Resp B/P Pulse Ox O2 Delivery O2 Flow Rate FiO2 12/28/16 08:00 98.7 81 18 152/85 99 Intake and Output 12/27/16 12/27/16 12/28/16 15:00 23:00 07:00 Intake Total 1500 ml 1150 ml Output Total 1200 ml Balance 1500 ml -50 ml Exam General: Well developed,adequately built, not in any acute distress . HEENT: Normocephalic, Atraumatic, No laceration or hematoma; Eyes: PEERL, Conjunctiva clear, Anicteric sclera Neck: Supple without any lymphadenopathy, nontender, no JVD, no carotid bruits, trachea midline, no thyromegaly Cardiac: S1, S2 auscultated, regular rhythm and rate, no mumurs or gallop Pulmonary: Normal respiratory effort. Chest clear to auscultation bilaterally, no adventitious breath sounds GI: Abdomen normal to inspection. Soft, non tender, non- distended, no masses, no rebound tenderness or guarding. Bowel sounds active on all four quadrants Genitourinary: Deferred Extremities: Right ankle with minimal swelling/nonpitting-has improved significantly. Otherwise no cyanosis, clubbing, or edema. Pulses [2+] bilaterally. Full ROM on all four extremities. No focal weakness appreciated. Neurologic: Alert to person, place, time, and situation. Affect appropriate, intact sensation. Skin: Clean,dry, and intact. No ecchymosis, no rashes, or lesions Results Result Diagram: 12/26/16 0448 12/28/16 0420 Results 24 hrs Laboratory Tests Test 12/27/16 17:15 12/28/16 04:20 Vancomycin Level Trough 15.4 Blood Urea Nitrogen 12 Creatinine 0.95 Total Bilirubin 0.2 Direct Bilirubin 0.00 Indirect Bilirubin 0.2 Aspartate Amino Transf (AST/SGOT) 119 H Alanine Aminotransferase (ALT/SGPT) 100 H Alkaline Phosphatase 69 Creatine Kinase 2181 #H Creatinine Kinase MB (Mass) 1.46 Total Protein 6.6 Albumin 3.6 Medications Medications Current Medications Ondansetron HCl (Zofran Inj) 4 mg Q6H PRN IV NAUSEA AND/OR VOMITING Last administered on 12/28/16 08:23; Admin Dose 4 MG; Start 12/24/16 at 00:30 Acetaminophen (Tylenol Tab) 650 mg Q6H PRN PO PAIN LEVEL 1-3 OR FEVER Last administered on 12/24/16 14:03; Admin Dose 650 MG; Start 12/24/16 at 00:30 Heparin Sodium (Porcine) 5000 unit 5,000 unit Q8 SC Last administered on 05:39; Admin Dose 5,000 UNIT; Start 12/24/16 at 06:00 Sodium Chloride (NS) 1,000 ml @ 125 mls/hr Q8H IV Last administered on 06:12; Admin Dose 125 MLS/HR; Start 12/24/16 at 04:00 Morphine Sulfate (morphine) 2 mg Q4H PRN IV PAIN Last administered on 21:42; Admin Dose 2 MG; Start 12/24/16 at 04:30 Pantoprazole (Protonix Tab) 40 mg DAILY@06 PO Last administered on 12/28/16 05 :37; Admin Dose 40 MG; Start 12/25/16 at 06:00 Baclofen (Lioresal) 10 mg Q8H PRN PO MUSCLE SPASMS Last administered on 18:16; Admin Dose 10 MG; Start 12/24/16 at 17:00 Acetaminophen/ Hydrocodone Bitart ([place] (5/325)) 1 tab Q6H PRN PO PAIN LEVEL 4 -6; Start 12/26/16 at 20:30 Acetaminophen/ Hydrocodone Bitart ([place] (5/325)) 2 tab Q6H PRN PO PAIN LEVEL 7 -10 Last administered on 12/28/16 10:26; Admin Dose 2 TAB; Start 12/26/16 at 20 :30 Diphenhydramine HCl 25 mg 25 mg Q6H PRN PO ITCHING Last administered on 23:55; Admin Dose 25 MG; Start 12/27/16 at 00:00 Vancomycin HCl (Vancocin) 250 ml @ 125 mls/hr Q8H IVPB Last administered on 10:04; Admin Dose 125 MLS/HR; Start 12/28/16 at 10:00 PHILLY CLAYTON NP Dec 28, 2016 11:03
[2016-12-28] MEDS: morphine 2 MG INJ IV PRN ×2 (13:59→22:15)
[2016-12-28 19:45] VITALS: BP 136/89; RESP 18
[2016-12-29] MEDS: DIPHENHYDRAMINE 25 MG CAP PO PRN (01:02)
[2016-12-29] MEDS: BACLOFEN 10 MG TAB PO PRN ×2 (01:02→21:31)
[2016-12-29] MEDS: VANCOMYCIN 1 GM in NS 250 ML IVPB SCH ×3 (01:32→17:32)
[2016-12-29] MEDS: SOD CHLORIDE 0.9% 1,000 ML IV SCH ×3 (04:00→20:00)
[2016-12-29] MEDS: HYDROCODONE/APAP (5/325) TAB PO PRN (05:39)
[2016-12-29] MEDS: PANTOPRAZOLE (EC) 40 MG TAB PO SCH (05:39)
[2016-12-29] MEDS: HEPARIN 5,000 UNIT/0.5 ML VIAL SC SCH ×3 (05:41→22:25)
[2016-12-29 08:00] VITALS: BP 130/82; RESP 18
--- NOTE | 2016-12-29 09:54 | PN ---
Date/Time of Note Date/Time of Note DATE: 12/29/16 TIME: 09:53 Assessment/Plan VTE Prophylaxis VTE Prophylaxis Intervention: ambulation, SCD's Lines/Catheters IV Catheter Type (from [facility]): Saline Lock Assessment/Plan Chief Complaint/Hosp Course 1. Right ankle cellulitis, acute-failed outpatient therapy. Improving significantly. -Continue IV antibiotics. -Pending culture reports. 2. Transaminase elevation, likely chronic secondary to rhabdomyolysis. Improved. Stable liver ultrasound. -We will monitor. 3. Rhabdomyolysis. Improved. - Continue treatment and hydration. Plan: Continue IV antibiotics. Await for culture results. Estimate discharge 1 -2 days on oral antibiotics once culture findings are available. Case discussed with Dr. Delgadillo. Problems: Subjective 24 Hr Interval Summary Free Text/Dictation No acute overnight episodes. Patient sleeping comfortably. Remains afebrile. Exam/Review of Systems Vital Signs Vitals Vital Signs Date Time Temp Pulse Resp B/P Pulse Ox O2 Delivery O2 Flow Rate FiO2 12/29/16 08:00 98.3 57 18 130/82 99 Intake and Output 12/28/16 12/28/16 12/29/16 15:00 23:00 07:00 Intake Total 250 ml 1350 ml 1550 ml Output Total 1500 ml Balance 250 ml 1350 ml 50 ml Exam General: Well developed,adequately built, not in any acute distress . HEENT: Normocephalic, Atraumatic, No laceration or hematoma; Eyes: PEERL, Conjunctiva clear, Anicteric sclera Neck: Supple without any lymphadenopathy, nontender, no JVD, no carotid bruits, trachea midline, no thyromegaly Cardiac: S1, S2 auscultated, regular rhythm and rate, no mumurs or gallop Pulmonary: Normal respiratory effort. Chest clear to auscultation bilaterally, no adventitious breath sounds GI: Abdomen normal to inspection. Soft, non tender, non- distended, no masses, no rebound tenderness or guarding. Bowel sounds active on all four quadrants Genitourinary: Deferred Extremities: Right ankle with minimal swelling/nonpitting-has improved significantly. Otherwise no cyanosis, clubbing, or edema. Pulses [2+] bilaterally. Full ROM on all four extremities. No focal weakness appreciated. Neurologic: Alert to person, place, time, and situation. Affect appropriate, intact sensation. Skin: Clean,dry, and intact. No ecchymosis, no rashes, or lesions Results Result Diagram: 12/26/16 0448 12/28/16 0420 Medications Medications Current Medications Ondansetron HCl (Zofran Inj) 4 mg Q6H PRN IV NAUSEA AND/OR VOMITING Last administered on 12/28/16 08:23; Admin Dose 4 MG; Start 12/24/16 at 00:30 Acetaminophen (Tylenol Tab) 650 mg Q6H PRN PO PAIN LEVEL 1-3 OR FEVER Last administered on 12/24/16 14:03; Admin Dose 650 MG; Start 12/24/16 at 00:30 Heparin Sodium (Porcine) 5000 unit 5,000 unit Q8 SC Last administered on 05:41; Admin Dose 5,000 UNIT; Start 12/24/16 at 06:00 Sodium Chloride (NS) 1,000 ml @ 125 mls/hr Q8H IV Last administered on 06:12; Admin Dose 125 MLS/HR; Start 12/24/16 at 04:00 Morphine Sulfate (morphine) 2 mg Q4H PRN IV PAIN Last administered on 22:15; Admin Dose 2 MG; Start 12/24/16 at 04:30 Pantoprazole (Protonix Tab) 40 mg DAILY@06 PO Last administered on 12/29/16 05 :39; Admin Dose 40 MG; Start 12/25/16 at 06:00 Baclofen (Lioresal) 10 mg Q8H PRN PO MUSCLE SPASMS Last administered on 01:02; Admin Dose 10 MG; Start 12/24/16 at 17:00 Acetaminophen/ Hydrocodone Bitart ([place] (5/325)) 1 tab Q6H PRN PO PAIN LEVEL 4 -6; Start 12/26/16 at 20:30 Acetaminophen/ Hydrocodone Bitart ([place] (5/325)) 2 tab Q6H PRN PO PAIN LEVEL 7 -10 Last administered on 12/29/16 05:39; Admin Dose 2 TAB; Start 12/26/16 at 20 :30 Diphenhydramine HCl 25 mg 25 mg Q6H PRN PO ITCHING Last administered on 01:02; Admin Dose 25 MG; Start 12/27/16 at 00:00 Vancomycin HCl (Vancocin) 250 ml @ 125 mls/hr Q8H IVPB Last administered on t 01:32; Admin Dose 125 MLS/HR; Start 12/28/16 at 10:00 PHILLY CLAYTON NP Dec 29, 2016 09:54
[2016-12-29 20:07] VITALS: BP 126/69; RESP 21
[2016-12-29] MEDS: ACETAMINOPHEN 325 MG TAB PO PRN (20:12)
[2016-12-30] MEDS: VANCOMYCIN 1 GM in NS 250 ML IVPB SCH ×2 (01:40→11:16)
[2016-12-30] MEDS: SOD CHLORIDE 0.9% 1,000 ML IV SCH ×2 (03:12→12:00)
[2016-12-30] MEDS: PANTOPRAZOLE (EC) 40 MG TAB PO SCH (06:00)
[2016-12-30] MEDS: HEPARIN 5,000 UNIT/0.5 ML VIAL SC SCH (06:00)
[2016-12-30 08:11] VITALS: BP 124/70; RESP 20
--- NOTE | 2016-12-30 09:40 | PDOCDIS ---
Discharge Instructions CONDITION Patient Condition: Stable HOME CARE INSTRUCTIONS: Special Diet: regular FOLLOW UP/APPOINTMENTS Follow-up Plan 1.Follow up with primary care physician in 1 week If you don't have one please let someone know, we can give you resources that may help you pick one. You may also call your insurance company to assign one to you. Review your medication list with your nurse before leaving and if you need new prescriptions please let your nurse know. I may have made changes to your home medications or given you new prescriptions, please let your primary doctor know as well. Stay compliant with your medications and report any side effects to your PCP or pharmacist. Return to the ER if you have any concerns and cannot reach your doctors or call your insurance company, they usually have a nurse that can help you. PHILLY CLAYTON NP Dec 30, 2016 09:39
[2016-12-30] MEDS ORDERED: HYDR-906 PO (09:44)
[2016-12-30] MEDS ORDERED: LEVO500T10 PO (09:44)
--- NOTE | 2016-12-30 14:36 | DS ---
Date/Time of Note Date/Time of Note DATE: 12/30/16 TIME: 14:31 Discharge Summary Admission/Discharge Info Admit Date/Time Dec 24, 2016 at 00:11 Discharge Date/Time Dec 30, 2016 at 13:50 Discharge Diagnosis 1. Right ankle cellulitis, acute-failed outpatient therapy. Resolved 2. Transaminase elevation, likely chronic secondary to rhabdomyolysis. Improved. 3. Rhabdomyolysis. Patient Condition: Stable Procedures 12/23/2016. Right ankle x-ray. Mild soft tissue swelling without osseous abnormality involving the right ankle. 12/24/2016. Liver ultrasound. Negative. Hospital Course This is a 21-year-old male with no pertinent medical/psychiatric history, who presented to the emergency room after being bit by a bug on his right ankle causing erythema, edema and tenderness started 3 days ago. Patient was seen in our emergency room 2 days ago and was sent home on oral Bactrim and Keflex, with failed outcome. Patient also had subjective fevers. He denied chills, chest pain, shortness of breath, nausea, vomiting, abdominal pain, diarrhea, constipation or other constitutional symptoms. Initial vital signs within acceptable range except for elevated blood pressure 161/96. Initial labs showed elevated WBC 12,200, sodium 134. He was also noted to have elevated CK. Ankle x-ray showed Mild soft tissue swelling without osseous abnormality involving the right ankle. patient also had mildly elevated liver enzymes. Patient was given pain medication and IV vancomycin in the emergency room and a clinical decisions made to admit as inpatient. Patient was admitted to medical surgical floor. He was continued on IV vancomycin, IV fluids and pain medication. Patient was also started on a diet. CK was repeated and was trending down. Liver panel was monitored closely and remained stable. Ultrasound liver was negative for any acute process. There was no further admission WBC. Patient remained afebrile. Right ankle swelling and erythema has completely subsided. Patient did not have any further pain on his ankle. Cultures were negative. At this time, patient is stable to be discharged on oral course of antibiotic. Disposition: Patient will be discharged home on oral Levaquin for 10 more days. Patient was instructed to follow-up with his primary care physician in 1 week. Patient also verbalized discharge instructions. Condition upon discharge stable. Approximately 50 minutes was spent in coordinating the discharge on this patient. Case discussed with Dr. Delgadillo Home Meds Active Scripts Hydrocodone/Acetaminophen (Bliss 5-325 Tablet) 1 Each Tablet, 1 EACH PO Q6H for PAIN, #30 TAB Prov:PHILLY CLAYTON NP 12/30/16 Levofloxacin* (Levofloxacin*) 500 Mg Tablet, 500 MG PO DAILY for 10 Days, TAB Prov:PHILLY CLAYTON NP 12/30/16 Ibuprofen* (Motrin*) 600 Mg Tab, 600 MG PO Q6, #15 TAB Prov:ALIDA JALLOH MD 12/21/16 Discontinued Scripts Cephalexin* (Keflex*) 500 Mg Capsule, 500 MG PO QID for 10 Days, CAP Prov:ALIDA JALLOH MD 12/21/16 Sulfamethoxazole/Trimethoprim* (Bactrim Ds* Tablet) 1 Each Tablet, 1 TAB PO BID , #14 TAB Prov:ALIDA JALLOH MD 12/21/16 Follow-up Plan 1.Follow up with primary care physician in 1 week If you don't have one please let someone know, we can give you resources that may help you pick one. You may also call your insurance company to assign one to you. Review your medication list with your nurse before leaving and if you need new prescriptions please let your nurse know. I may have made changes to your home medications or given you new prescriptions, please let your primary doctor know as well. Stay compliant with your medications and report any side effects to your PCP or pharmacist. Return to the ER if you have any concerns and cannot reach your doctors or call your insurance company, they usually have a nurse that can help you. Primary Care Provider Not On Staff Doctor PHILLY CLAYTON NP Dec 30, 2016 14:35
== END 2016-12-30 13:50 | disposition home or self-care (01) | DRG 603 ==
LOC: FTE 19:07 → MS1 12-24 00:11
PROVIDERS: ADMIT Family Medicine; ATTEND Family Medicine
DX: L03.115 Cellulitis of right lower limb (principal); M62.82 Rhabdomyolysis; R74.0 Nonspecific elevation of levels of transaminase and lactic acid dehydrogenase [LDH]; M62.9 Disorder of muscle, unspecified; R03.0 Elevated blood-pressure reading, without diagnosis of hypertension; M25.471 Effusion, right ankle; R60.0 Localized edema; L53.8 Other specified erythematous conditions; S90.561D Insect bite (nonvenomous), right ankle, subsequent encounter
CPT/HCPCS: 36415; 73630; 76705; 80048; 80053; 80076; 80202; 81003; 82550; 82553; 82565; 83036; 83605; 83735; 84100; 84484; 84520; 85025; 85651; 86140; 86704; 86709; 86803; 87040; 87340; 96361; 96365; 96375; C9113; J1644; J1885; J1956; J2270; J2405; J3370; J7030; J7050